=== PATIENT | male | born 1965 | race Caucasian/White ===

== ENCOUNTER → 2016-12-16 | Outpatient (CLI) | payer OTHER ==
--- NOTE | 2016-12-20 13:34 | EEG PRO FEE REPORT ---
EEG INTERPRETATION PATIENT NAME: BARBARA ORONA ROOM#: ORDER#: [id number] DATE OF STUDY: 12/16/2016 : 1965 REFERRING MD: SIDRA COLE M.D. DIAGNOSIS: Convulsions REPORT The background activity consists of mostly 10 Hz fairly low voltage alpha with superimposed motion artifact at times. Occasional EKG artifact is seen. No further focal slowing, amplitude, or epileptiform activity is identified. IMPRESSION Normal EEG with excess motion artifact at times INTERPRETING PHYSICIAN: SANDRO LANG M.D. /: MTEFFT TT: 1327 ID: [id number] /: [id number] TD: 1209 JOB: [id number] cc:Sudha MATTHEW M.D. >
== END ==
LOC: NEURO 12:42
PROVIDERS: ATTEND Pediatrics
DX: R56.9 Unspecified convulsions (principal)
CPT/HCPCS: 95819